=== PATIENT | female | born 1995 | race Caucasian/White ===

== ENCOUNTER 2016-08-27 23:27 | Emergency (ER) | payer SELFPAY ==
[~2016-08-27] VITALS: Ht 167.6 cm; Wt 65.0 kg
[2016-08-27 23:28] VITALS: BP 140/78; PULSE 87; RESP 14; TEMP 98.6; O2SAT 100
[2016-08-27] MEDS ORDERED: CEPH-460 PO ×2 (23:40→23:47)
[2016-08-27] MEDS ORDERED: BACT800T5 PO ×2 (23:40→23:47)
--- NOTE | 2016-08-27 23:44 | PD ---
HPI Chief Complaint: Skin Problem Time Seen by Provider: 23:35 Travel History International Travel<30 days: No Contact w/Intl Traveler<30days: No Traveled to known affect area: No History of Present Illness HPI This patient was examined in the presence of a female tech. 21-year-old female who reports a history of hepatitis C, remote history of IV drug abuse, last used over one year ago, presents for evaluation of areas of skin redness. The patient reports that [place] She reports that she developed some pruritic papular lesions on the lower extremities afterwards. She has been scratching at them and now today she woke up with pain and redness around to the lesions on her right leg and one on her right lower abdomen. The pain is described as a pressure which is constant and worse with palpation. She has not had any oozing from the wounds. Denies fevers or chills. She has no other complaints at this time. [facility] Social History Alcohol Use: Yes Tobacco Use: Yes Allergies-Medications (Allergen,Severity, Reaction): Coded Allergies: No Known Allergies (Unverified , 08/27/16) Review of Systems Except as stated in HPI: all other systems reviewed are Neg Physical Exam Narrative GENERAL well-developed well-nourished female in no acute distress SKIN: Warm and dry. Examination of the skin reveals a papular lesion on the anterior right hebert with some surrounding erythema. Similar area of erythema noted to the medial right thigh, right lower abdominal wall. There is no fluctuance or drainage. The patient has several excoriated papular lesions on the lower extremities as well. HEAD: Atraumatic. Normocephalic. EYES: Pupils equal and round. No scleral icterus. No injection or drainage. ENT: No nasal bleeding or discharge. Mucous membranes pink and moist. NECK: Trachea midline. No JVD. CARDIOVASCULAR: Regular rate and rhythm. No murmur appreciated. RESPIRATORY: No accessory muscle use. Clear to auscultation. Breath sounds equal bilaterally. GASTROINTESTINAL: Abdomen soft, non-tender, nondistended. MUSCULOSKELETAL: No obvious deformities. Data Data Last Documented VS Vital Signs Date Time Temp Pulse Resp B/P Pulse Ox O2 Delivery O2 Flow Rate FiO2 08/27/16 23:28 98.6 87 14 140/78 100 Room Air Orders Sulfamet-Trimeth Ds 800-160 Mg (Bactrim (08/27/16 23:45) Cephalexin (Keflex) (08/27/16 23:45) MDM Medical Decision Making Medical Screen Exam Complete: Yes Emergency Medical Condition: Yes Medical Record Reviewed: Yes Differential Diagnosis Cellulitis, localized allergic reaction to bug bites, contact dermatitis, erysipelas, abscess Narrative Course Examination reveals 3 areas of cellulitic change. Plan is for outpatient antibiotics. She'll be given Bactrim and Keflex here. Discussed signs and symptoms that would warrant returning to the emergency room. She is stable for discharge. Diagnosis Primary Impression: Cellulitis Qualified Code: L03.90 - Cellulitis, unspecified cellulitis site Additional Instructions: Take antibiotics as prescribed. Warm compresses to the affected area several times a day 10-15 minutes at a time. If symptoms are worsening after 48 hours return to the emergency room. Findings would include increasing area of redness , increasing pain, fevers. Med/Other Pt SpecificInfo: Prescription(s) given Scripts Cephalexin (Keflex)500 Mg [id number] Mg PO Q6H 10 Days Ref 0 Prov:Jose Francisco Weems MD 08/27/16 Sulfamethoxazole-Trimethoprim (Bactrim DS)800-160 Mg Tab1 Tab PO BID #20 TAB Ref 0 Prov:Jose Francisco Weems MD 08/27/16 Disposition: 01 DISCHARGE HOME Condition: Stable Sebas Alonso Aug 27, 2016 23:44
[2016-08-27] MEDS ORDERED: CEPHALEXIN MONOHYDRATE 500 MG CAP PO ONE (23:45)
[2016-08-27] MEDS ORDERED: SULFAMETHOXAZOLE-TRIMETHOPRIM DS 800-160 MG TAB PO ONE (23:45)
== END 2016-08-28 00:02 | disposition home or self-care (01) ==
LOC: NEPK 23:27
DX: L03.115 Cellulitis of right lower limb (principal); L03.311 Cellulitis of abdominal wall; Z72.0 Tobacco use
CPT/HCPCS: 99283